=== PATIENT | male | born 1950 | race Caucasian/White ===

== ENCOUNTER 2017-06-27 08:44 | Day surgery (SDC) | payer MEDICARE, BC ==
[~2017-06-27] VITALS: Ht 182.9 cm; Wt 95.5 kg
[~2017-06-27 08:44] MED LIST: ACTOS30 MG PO; ASPIR 8181 M1 PO; BP MED PO; BYSTOLIC10 MG PO; CARDIZEM CD240 MG PO; COREG12.5 M1 PO; CRESTOR20 MG PO; DOXEPIN HCL25 MG PO; GLUCOPHAGE XR750 M1 PO; HYDROCHLOROTHIA25 MG PO; LIPITOR PO; LIPITOR20 M1 PO; LIPITOR20 MG PO; LISINOPRIL-HCT1 EAC2 PO; MOBIC15 M2 PO; NORCO 5/325 TAB1 TAB PO; NORVASC10 M2 PO; PERCOCET 5/3251 TAB PO; POTASSIUM CHLO20 ME3 PO; PRILOSEC OTC20 M1 PO; SENOKOT-S TABLE1 TAB PO; TOPROL XL50 MG PO; TRAMADOL HCL50 MG PO; TYLENOL325 M1 PO; TYLENOL650 MG PO; [UNRECOGNIZED DRUG - REMARK]
== END 2017-06-27 11:12 ==
LOC: SRG 08:44 → SHSB 08:44 → SRG 09:00 → ORW 09:52 → SHSB 10:28 → SRG 11:12
PROC: 0CB10ZX Excision of Lower Lip, Open Approach, Diagnostic (ICD-10-PCS; principal; 2017-06-27)
DX: D04.0 Carcinoma in situ of skin of lip (principal); L56.8 Other specified acute skin changes due to ultraviolet radiation; I25.10 Atherosclerotic heart disease of native coronary artery without angina pectoris; I10 Essential (primary) hypertension; E78.2 Mixed hyperlipidemia; E11.9 Type 2 diabetes mellitus without complications; Z95.1 Presence of aortocoronary bypass graft; Z96.643 Presence of artificial hip joint, bilateral; Z79.82 Long term (current) use of aspirin; Z79.899 Other long term (current) drug therapy; Z98.890 Other specified postprocedural states
CPT/HCPCS: J0690